=== PATIENT | male | born 1945 | race Caucasian/White ===

== ENCOUNTER → 2018-09-27 09:09 | Outpatient (CLI) | payer MEDICARE, OTHER, SELFPAY ==
[2018-09-27 10:03] LABS: Add Manual Diff / Slide Review NO; Basophils Percent Auto 0.8 % (0-2); Eosinophils Percent Auto 1.2 % (2-4); Hematocrit 43.4 % (41-53); Hemoglobin 14.7 g/dL (13.5-17.5); Lymphocytes Percent Auto 27.8 % (25-40); Mean Corpuscular HGB Conc 33.8 % (30-36); Mean Corpuscular Hemoglobin 30.1 PG (26-34); Mean Corpuscular Volume 89.2 fL (80-100); Monocytes Percent Auto 7.6 % (3-14); Neutrophils Absolute Auto 4900 /uL (3000-5900); Neutrophils Percent Auto 62.6 % (50-75); Platelet Count 236 X10^3/uL (150-400); Red Blood Cell Count 4.86 X10^6/uL (4.5-5.9); White Blood Cell Count 7.8 X10^3/uL (4.5-11.0)
[2018-09-27 10:49] LABS: Appearance Urine UA CLEAR; Bilirubin Urine UA NEGATIVE (NEGATIVE); Color Urine UA YELLOW; Glucose Urine UA NEGATIVE (Normal); Ketones Urine UA NEGATIVE (NEGATIVE); Leukocyte Esterase Urine UA NEGATIVE (NEGATIVE); Nitrite Urine UA NEGATIVE (Negative); Occult Blood Urine UA NEGATIVE (Negative); Protein Urine UA NEGATIVE (Negative); Urobilinogen Urine UA 0.2 E.U./dL (0.2); pH Urine UA 6.5 (4.5-8.0)
[2018-09-27 10:54] LABS: Alanine Aminotransferase 26 IU/L (21-72); Albumin 4.4 g/dL (3.5-5.0); Albumin Globulin Ratio 1.5 (1.0-2.8); Alkaline Phosphatase 77 U/L (38-126); Aspartate Aminotransferase 24 IU/L (17-59); Bilirubin Total 0.6 mg/dL (0.2-1.3); Blood Urea Nitrogen 16 mg/dL (9-20); Carbon Dioxide 25 mmol/L (22-32); Chloride 103 mmol/L (98-107); Cholesterol 198 mg/dL (140-199); Estimated Glomerular Filt Rate > 60.0 mL/min (>60); Globulin 2.9 g/dL (1.7-4.1); Glucose 104 mg/dL (80-110); HDL Cholesterol 62 mg/dL (40-60); HEMOLYSIS < 15 (0-50); LDL Cholesterol Calculated 114 mg/dL (<100); Potassium 4.2 mmol/L (3.4-5.1); Sodium 142 mmol/L (137-145); Total Protein 7.3 g/dL (6.3-8.2); Triglycerides 112 mg/dL (35-150)
[2018-09-27 11:18] LABS: Thyroid Stimulating Hormone 1.24 uIU/mL (0.47-4.68)
== END ==
PROVIDERS: PCP Family Medicine; Visit Provider Family Medicine
DX: C43.9 Malignant melanoma of skin, unspecified (principal); E78.5 Hyperlipidemia, unspecified; G47.00 Insomnia, unspecified; I10 Essential (primary) hypertension; M19.90 Unspecified osteoarthritis, unspecified site
CPT/HCPCS: 36415; 80053; 80061; 81003; 84153; 84443; 85025

== ENCOUNTER 2018-10-25 12:03 | Day surgery (SDC) | payer MEDICARE, OTHER, SELFPAY ==
[2018-10-25 12:55] VITALS: BMI 29.0
[2018-10-25 13:12] VITALS: BP 149/94; PULSE 108; RESP 16; TEMP 36.6; O2SAT 97
[2018-10-25] MEDS: SODIUM CHLORIDE 0.9% 1,000 ML 21 ML IV (13:13)
--- NOTE | 2018-10-25 13:56 | PM.HP.1 ---
History of Present Illness Date Patient Seen: 10/25/18 Time Patient Seen: 13:56 Chief complaint: Colonoscopy; [address]100 Narrative: 73-year-old male who presents for colorectal screening. He has not had any type of screening examination for over 30 years now. On further history today he denies any recent gastrointestinal symptoms. No nausea, vomiting, abdominal pain, loss of appetite, unexplained weight loss, change in bowel habits, diarrhea, constipation, melena, hematochezia, or bright red blood per rectum. Patient History Medical History Carpal tunnel syndrome on both sides (Acute) Cough (Acute) Melanoma (Acute) GERD (gastroesophageal reflux disease) (Chronic) Hypertension (Chronic) Varicose vein of leg (Chronic) Surgical History History of appendectomy (Resolved ~1949) History of back surgery (Resolved 1971) Family & Social History Family History: Reviewed 10/25/18 by Albino Seth MD Social History: household members spouse Tobacco & Substance use: Smoking Status Current some day smoker alcohol intake current Meds Home Medications Medication Instructions Recorded Confirmed Type hydrocodone 10 mg-acetaminophen 1 tab PO Q6H PRN 07/10/18 10/25/18 History 325 mg tablet metoprolol succinate ER 25 mg 25 mg PO DAILY 07/10/18 10/25/18 History tablet,extended release 24 hr zolpidem 10 mg tablet 10 mg PO BEDTIME PRN tab 07/10/18 10/25/18 History esomeprazole magnesium [Nexium] 20 mg PO DAILY 07/26/18 10/25/18 History oxybutynin chloride 5 mg PO DAILY 10/25/18 10/25/18 History Allergies Allergy/AdvReac Type Severity Reaction Status Date / Time No Known Drug Allergies Allergy Verified 10/25/18 12:52 Review of Systems Review of Systems All systems reviewed & are unremarkable except as noted in HPI and below Exam Vital Signs (past 8 hours): - 10/25/18 13:12 Temperature 97.9 F Pulse Rate 108 H Respiratory Rate 16 Blood Pressure 149/94 H Pulse Oximetry 97 Oxygen Delivery Method Room Air Narrative Exam Narrative: Well-nourished well-developed elderly male resting comfortably in bed in no acute distress. Alert oriented x3. Family is at the bedside. Sclera nonicteric Regular rate rhythm Abdomen soft, nondistended, nontender Extremities show no clubbing or cyanosis Objective Labs Labs: No recent laboratory or radiographic studies for review Assessment & Plan Plan: Assessment/Plan Narrative: 73-year-old may require colorectal screening since it has been more than 30 years from his last examination. Colonoscopy is currently recommended. Technical details of the procedure were discussed. Risks, benefits, alternatives were explained. Risks including but not limited to sedation, aspiration, bleeding, pain, missed lesion, incomplete examination, need for further radiographic studies, colonic perforation, need for major abdominal surgery, and all attendant risks of major surgery were explained in detail. All questions were answered to his satisfaction, and he voiced understanding. Consent was placed on the chart. We will proceed as above.
--- NOTE | 2018-10-25 13:58 | PM.PREOP ---
Pre-operative Note Interval Note Pre-op Check: Yes History & Physical Reviewed by Physician, Yes Exam Performed and Yes History & Physical exam performed today by Physician Changes: No H&P completed within 30 days and has changed as indicated here:: Patient seen and examined today. History and physical examination placed on the chart today. We will proceed with colonoscopy today as planned. ASA Class (for procedural sedation): II
[2018-10-25] MEDS: MIDAZOLAM 5 MG/5 ML VIAL IV (14:12)
[2018-10-25] MEDS: fentaNYL 250 MCG/5 ML INJ IV (14:13)
--- NOTE | 2018-10-25 14:21 | PM.OP.ENDO ---
Operative Date/Time/Diagnoses Date of procedure: 10/25/18 Time of procedure: 14:21 Pre-op diagnosis: Colorectal screening Post-op diagnosis: other (Diverticulosis but otherwise normal colon and rectum) Procedure & Clinicians Study performed: 1. Sedation per surgeon 2. Colonoscopy Same procedure as scheduled: Yes Indications: 73-year-old male who presented for colorectal screening. It has been more than 30 years from his prior examination. Colonoscopy is currently recommended Surgeon: Albino Seth Procedure Notes SCOAP/Timeout: Yes Procedure in detail: After obtaining informed consent, the patient was brought to the GI suite and placed in the left lateral decubitus position on the examination table. After placement of appropriate monitors, the patient was given incremental doses of Versed and Fentanyl until an appropriate level of sedation was achieved. A time out was held per SCOAP protocol. A digital rectal examination was performed and did not reveal any masses or obstructing lesions. The colonoscope was gently passed into the patient's anus and the entire colon navigated to the level of the cecum with minimal difficulty. Once in the cecum, the scope was withdrawn being sure to go before and beyond all mucosal folds and prominences and get an excellent examination. The findings are noted above. At the level of the rectal vault, the scope was retroflexed and the internal anal canal was examined. The scope was straightened and air aspirated from the colon. The instrument was removed from the patient's body and the procedure was concluded. The patient was allowed to awaken from sedation without difficulty and taken to the post-anesthesia care unit in good condition. Scope withdrawal time: 7:36 min Sedation minutes: 15 Findings: diverticulosis and other findings (Otherwise normal colon and rectum) Specimen(s): none sent Complications: none Recommendations: High fiber diet and Other recommendation (No further colonoscopy indicated in the absence of any new symptoms or problems) Plan for aftercare: 1. Discharge home Follow up: as needed Disposition: PACU
[2018-10-25 14:27] VITALS: BP 135/100; PULSE 96; RESP 15; TEMP 36.9; O2SAT 97
[2018-10-25 14:52] VITALS: BP 140/89; PULSE 88; RESP 12; TEMP 36.4; O2SAT 96
== END 2018-10-25 14:53 | disposition home or self-care (01) ==
PROVIDERS: PCP Family Medicine; Visit Provider Surgery
PROC: 0DJD8ZZ Inspection of Lower Intestinal Tract, Via Natural or Artificial Opening Endoscopic (ICD-10-PCS; CPT 45378; principal; 2018-10-25 13:45)
DX: Z12.11 Encounter for screening for malignant neoplasm of colon (principal); K57.30 Diverticulosis of large intestine without perforation or abscess without bleeding; I10 Essential (primary) hypertension; F17.210 Nicotine dependence, cigarettes, uncomplicated
CPT/HCPCS: G0121; 99152; J2250; J3010

== ENCOUNTER → 2018-12-06 08:07 | Outpatient (CLI) | payer MEDICARE, OTHER, SELFPAY ==
--- NOTE | 2018-12-06 10:44 | PM.TREADMILL ---
Cardiac Stress Test Report Referral & Results Date Patient Seen: 12/06/18 Requesting provider: Lakshmi Rodriguez Indication: Chest pain/fatigue Rest ECG: Unremarkable Procedure Note: Today following both written and verbal informed consent, the patient was exercised according to a standard Jose protocol. The patient exercised for a total of 7 min 7 sec achieving a maximum heart rate of 170. Patient's maximum systolic blood pressure was 220. This was an estimated 10.1 MET's. There are no ST-T segment changes Normal heart rate blood pressure response Frequent PVCs including multifocal PVCs and rare ventricular couplets including multifocal depolarizations Functional aerobic impairment rated-20% on the active scale Impression: No evidence of ischemia Ventricular dysrhythmias above, consider echocardiogram Excellent exercise capacity Please note: Actual ECG tracings can be found in the PACS system.
== END ==
PROVIDERS: PCP Family Medicine; Visit Provider Family Medicine
DX: R07.9 Chest pain, unspecified (principal); I47.0 Re-entry ventricular arrhythmia; R53.83 Other fatigue
CPT/HCPCS: 93016; 93017; 93018

== ENCOUNTER → 2019-07-09 09:18 | Outpatient (CLI) | payer MEDICARE, OTHER, SELFPAY ==
--- NOTE | 2019-07-09 10:03 | DI.CT.S_ITS ---
PROCEDURE: CT ABDOMEN PELVIS W CON INDICATIONS: abd tenderness, h/o melanoma TECHNIQUE: After the administration of oral and intravenous contrast, 5 mm thick sections acquired from the diaphragms to the symphysis. 5 mm thick coronal and sagittal reformats were performed. For radiation dose reduction, the following was used: automated exposure control, adjustment of mA and/or kV according to patient size. COMPARISON: None. FINDINGS: Image quality: Excellent. ABDOMEN: Lung bases: Lung bases are clear. Heart size is normal. Solid organs: Liver is normal in size. Mild hepatic steatosis is seen. No discrete hepatic lesion. Gallbladder is within normal limits. Biliary system is non-dilated. Pancreas enhances normally. Spleen is normal in size and enhancement. No adrenal nodules. Kidneys are normal in size and enhancement, without hydronephrosis. Peritoneum and bowel: Stomach, small bowel, and colon loops are normal in caliber and wall thickness. No free fluid or air. There is a small hiatal hernia. Sigmoid diverticulosis is seen, no significant evidence of acute diverticulitis. Nodes and vessels: No retroperitoneal or mesenteric adenopathy. Aorta and inferior vena cava are normal in caliber. Miscellaneous: There is a small umbilical hernia containing fat only. PELVIS: Genitourinary: Enlarged prostate gland is seen with mass effect of floor of urinary bladder. There is mild diffuse bladder wall thickening. No discrete bladder wall mass. Miscellaneous: No inguinal hernias or adenopathy. Surgical clips are seen in left inguinal region. Bones: No suspicious bony lesions. No vertebral body compression fractures. Prior bilateral facet fusion at L5-S1 level is seen. 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 IMPRESSION: 1. No bowel obstruction. No free fluid or free air. Sigmoid diverticulosis, no CT evidence of acute diverticulitis. 2. Enlarged prostate gland with mild mass effect of floor of urinary bladder. Mild diffuse bladder wall thickening, no discrete bladder wall mass. 3. Post surgical changes in lower lumbar spine. No gross acute osseous abnormality. Dictated by: Kd Green M.D. on 07/09/2019 at 13:49 Approved by: Kd Green M.D. on 07/09/2019 at 13:54
== END ==
PROVIDERS: Family Provider Family Medicine; PCP Family Medicine; Visit Provider Internal Medicine Hematology & Oncology
DX: D03.4 Melanoma in situ of scalp and neck (principal); R10.32 Left lower quadrant pain
CPT/HCPCS: 74177; Q9967

== ENCOUNTER → 2019-07-18 09:20 | Oncology outpatient (ONC) | payer MEDICARE, OTHER, SELFPAY ==
--- NOTE | 2018-07-26 10:11 | ONC.CONS ---
History of Present Illness - Consult Narrative Reason for consult: Scalp melanoma Narrative: Mr. Derek Bruner is a 73 year old male with medical problems most notable for hypertension. He has a abnormal skin nevi on top of the scalp for a long long time. On March 06, 2018, Dr. Jacob Elizabeth performed biopsy of the lesion. Patient and patient's daughter said that the skin lesion has been there for years and it was dark and 'big', but with no pain and no itching at all. Dr. Elizabeth, however, noticed 'something not right' and therefore recommended the biopsy. 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 Tumor infiltrating lymphocytes were present and no neurotropism identified. The margins were positive. The deep margin was negative. It was called pT2a. BRAF mutation was not performed. On March 21, 2018. he underwent PET scan that was negative for evidence of metastatic disease. Patient was then referred to [facility]ck [facility] Department. Patient underwent re-resection and sentinel lymph node excision on April 16, 2018. The final pathology showed that the residual scalp melanoma 0.6 mm in thickness. Tumor regression was present involving 75% or more of the lesion. 2 sentinel lymph nodes were negative for neoplasm. All margins were widely free of by involvement. The final staging was pT2a pN0. Patient presents here today for discussion of postoperative adjuvant therapy. Clinically patient reports no headache, no double vision, and no blurred vision. Patient does report numbness of the grafted scalp. Patient reports no shortness of breath, and no chest pain. He denies abdominal pain, diarrhea or constipation. Patient reports poor appetite adn low energy level CC: Canelo Peralta MD Home Medications and Allergies Home Medications Medication Instructions Recorded Confirmed Type hydrocodone 10 mg-acetaminophen 1 tab PO Q6H PRN 07/10/18 07/10/18 History 325 mg tablet metoprolol succinate ER 25 mg 25 mg PO DAILY 07/10/18 07/10/18 History tablet,extended release 24 hr simvastatin 20 mg tablet 20 mg PO QPM 07/10/18 07/10/18 History zolpidem 10 mg tablet PO tab 07/10/18 07/10/18 History esomeprazole magnesium [Nexium] 20 mg PO DAILY 07/26/18 07/26/18 History Allergies Allergy/AdvReac Type Severity Reaction Status Date / Time No Known Drug Allergies Allergy Verified 07/10/18 09:40 Medical History - Medical, Surgical, Family History Medical History: Medical History (Last Updated 07/26/18 @ 10:46 by Canelo Peralta MD) Carpal tunnel syndrome on both sides Cough Hypertension Varicose vein of leg Surgical History: Surgical History (Last Updated 07/26/18 @ 10:46 by Canelo Peralta MD) History of appendectomy History of back surgery Family History: Family History (Last Reviewed 07/26/18 @ 10:58 by Canelo Peralta MD) Mother Pancreatic cancer Sister Breast cancer - Social History Smoking Status: Current some day smoker Review of Systems All systems PM: reviewed and no additional remarkable complaints except as stated Exam - Constitutional positive no acute distress, positive cooperative - Routine HEENT Exam Head: Present: normocephalic, atraumatic Eye: Present: EOMI, PERRL, normal accommodation. Absent: conjunctival icterus ENT: Present: mucous membranes moist - Routine Neck Exam Present: supple, full ROM, JVD. Absent: lymphadenopathy, thyromegaly - Routine Respiratory Exam Present: Clear to auscultation bilaterally. Absent: wheezes - Routine Cardiovascular Exam Present: RRR, S1, S2. Absent: murmur, gallop, rubs - Routine Abdominal Exam Present: soft, normoactive bowel sounds. Absent: tenderness, distended, organomegaly - Routine Extremities Exam Present: cyanosis, clubbing, edema - Routine Skin Exam Present: intact, cyanosis, erythema - Routine Neurological Exam Present: alert, oriented X3, CN II-XII intact, normal speech - Routine Psychiatric Exam Present: normal affect, normal thought process, good insight, good judgment Results - Labs I reviewed all the medical records available to me including the lab results the x-rays and the pathology report. Assessment and Plan (1) Melanoma in situ of scalp Current visit: Yes Status: Chronic I reviewed the pathology report from [facility] and from the [facility]. It is a node negative pT2a pN0 M0 melanoma of the scalp. That is stage IB. And the primary malignancy has completely resected with white negative margins. Two sentinel lymph nodes dissection were completely negative for evidence of malignancy. I talked with the patient that based on NCCN guidelines, I recommend active surveillance. I will bring this patient back in about 6 months for follow-up visit. I also encouraged the patient to continue follow-up with his primary drapery worker and primary care physician for continued follow-up visit.
--- NOTE | 2018-07-26 10:54 | ONC.NAV ---
Description: New Pt Intro Activity: Met with pt and his dtr, Renae, very briefly before his initial provider consult visit today. Pt has been recently diagnosed with melanoma, and has already had a surgical procedure to remove the lesion on the top of his head. He presents in good spirits, denies the need for any additional support or resources at this time. His daughter is a nurse here at , and provides excellent support. Plan: Will monitor pt's treatment plan, and offer ongoing assistance and support as needed. Ongoing psychosocial assessment.
[2018-07-26 11:09] VITALS: BP 151/91; PULSE 69; RESP 16; TEMP 36.4; O2SAT 96
--- NOTE | 2018-08-02 10:42 | PC.NURSE ---
Spoke with Lilia RN with Dr Rodriguez's office. Pt was seen for Melanoma to the scalp which she then referred to a silver miner blasting as well as an oncologist which happens to be Dr Peralta. There was some confusion regarding lymph node involvement on both the pts part as well as Dr Rodriguez's dictation. Path results dated April of 2018 showed both lymph nodes 1 and 2 removed from the left neck to be negative for melanoma. I have asked Lilia to speak with Dr Rodriguez and do an addendum to her dictation dated 07/10 changing the positive nodes to negative nodes based on the path reports.
[2019-01-03 11:01] VITALS: BP 158/89; PULSE 71; RESP 18; TEMP 36.5; O2SAT 97
--- NOTE | 2019-01-03 11:15 | ONC.PN ---
PN -Subjective Interval history: He presents here today for scheduled six-month follow-up visit. Currently the patient is also being followed every three months for skin exams by Clara Kruger PA-C, [facility]. The most recent was 2 months ago. No abnormal findings. Clinically patient said that he has been doing very well. No new skin rashes no new headache double vision or blurred vision. No chest pain no shortness of breath. No abdominal pain no diarrhea and no constipation. Oncology History Mr. Derek Bruner is a 73 year old male with medical problems most notable for hypertension. He has an abnormal skin nevi on top of the scalp for a long long time. On March 06, 2018, Dr. Jacob Elizabeth performed biopsy of the lesion. Patient and patient's daughter said that the skin lesion has been there for years and it was dark and 'big', but with no pain and no itching at all. Dr. Elizabeth, however, noticed 'something not right' and therefore recommended the biopsy. 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 Tumor infiltrating lymphocytes were present and no neurotropism identified. The margins were positive. The deep margin was negative. It was called pT2a. BRAF mutation was not performed. On March 21, 2018. he underwent PET scan that was negative for evidence of metastatic disease. Patient was then referred to [facility] Department. Patient underwent re-resection and sentinel lymph node excision on April 16, 2018. The final pathology showed that the residual scalp melanoma 0.6 mm in thickness. Tumor regression was present involving 75% or more of the lesion. 2 sentinel lymph nodes were negative for neoplasm. All margins were widely free of by involvement. The final staging was pT2a pN0. Patient presents here today for discussion of postoperative adjuvant therapy. Clinically patient reports no headache, no double vision, and no blurred vision. Patient does report numbness of the grafted scalp. Patient reports no shortness of breath, and no chest pain. He denies abdominal pain, diarrhea or constipation. Patient reports poor appetite adn low energy level - Patient Self-Reported Symptoms SR ears, nose, mouth, throat issues: Congestion, Cough SR respiratory issues: Mucous SR Skin issues: Skin rash or itching SR Gastrointestinal issues: Heartburn SR Genitourinary issues: Frequent urination SR Musculoskeletal issues: Back or neck pain SR Neuro issues: Headache - Additional ROS All systems PM: reviewed and no additional remarkable complaints except as stated Home Medications and Allergies Home Medications Medication Instructions Recorded Confirmed Type hydrocodone 10 mg-acetaminophen 1 tab PO Q6H PRN 07/10/18 10/31/18 History 325 mg tablet metoprolol succinate ER 25 mg 25 mg PO DAILY 07/10/18 10/31/18 History tablet,extended release 24 hr zolpidem 10 mg tablet 10 mg PO BEDTIME PRN tab 07/10/18 10/31/18 History esomeprazole magnesium [Nexium] 20 mg PO DAILY 07/26/18 10/31/18 History oxybutynin chloride 5 mg PO DAILY 10/25/18 01/03/19 History adjuvant AS01B (PF), component 0.5 ml IM ONCE #0.5 ml 10/31/18 10/31/18 Rx vial 1 of 2 intramuscular suspension Allergies Allergy/AdvReac Type Severity Reaction Status Date / Time No Known Drug Allergies Allergy Verified 10/31/18 10:11 Exam Vital signs: Last Vital Signs Temp 97.7 F 01/03/19 11:01 Pulse 71 01/03/19 11:01 Resp 18 01/03/19 11:01 BP 158/89 H 01/03/19 11:01 Pulse Ox 97 01/03/19 11:01 ECOG 1 Narrative: Constitutional: WDWN, NAD, well groomed, pleasant and cooperative. HEENT: NCAT, EOMI, PERRLA, anicteric sclera. Neck: Supple, No palpable thyromegaly or lymphadenopathy. Respiratory: Clear to auscultation, and no wheezes or rales or rubs. Cardiovascular: RRR, S1 and S2 normal, no M/G/R. No JVD. Abdomen: Soft, NTND, BS normal, no palpable organomegaly, no hernia, no palpable masses. Extremities: No LE pitting edema. Lymphatic: no palpable lymph nodes in the neck, axillae, or groins. Musculoskeletal: normal gait and station Skin: no rashes, no ulcers, no petechiae Neurological: AOx3, CN II-XII grossly intact. No focal motor or sensory deficit. Psychiatric: Good judgment and insight; normal affect; normal thought process; cooperative, no depression, no anxiety. Results - Labs Reviewed. Assessment and Plan (1) Melanoma in situ of scalp Assessment: I reviewed the pathology report from [facility] and from the [facility]. It is a node negative pT2a pN0 M0 melanoma of the scalp. That is stage IB. And the primary malignancy has completely resected with white negative margins. Two sentinel lymph nodes dissection were completely negative for evidence of malignancy. I talked with the patient that based on NCCN guidelines, I recommended active surveillance. He presents here today for follow-up visit and I did not see any abnormal skin changes. Patient is also being followed every three months for skin exams by Clara Kruger PA-C, [facility]. The most recent was 2 months ago. No abnormal findings. Plan: 1. RTC in 6 months, CBC, CMP 2. Cont follow up with Clara Kruger PA-C, [facility] for skin exam every 3 months
[2019-06-26 08:29] LABS: Add Manual Diff / Slide Review NO; Basophils Absolute Auto 100 /uL (0-100); Basophils Percent Auto 0.8 % (0-2); Eosinophils Absolute Auto 200 /uL (0-450); Eosinophils Percent Auto 2.6 % (2-4); Hematocrit 42.8 % (41-53); Hemoglobin 14.3 g/dL (13.5-17.5); Lymphocytes Absolute Auto 2400 /uL (1100-4500); Lymphocytes Percent Auto 37.1 % (25-40); Mean Corpuscular HGB Conc 33.4 % (30-36); Mean Corpuscular Hemoglobin 30.4 PG (26-34); Mean Corpuscular Volume 90.9 fL (80-100); Monocytes Absolute Auto 600 /uL (0-900); Monocytes Percent Auto 9.1 % (3-14); Neutrophils Absolute Auto 3200 /uL (1500-7000); Neutrophils Percent Auto 50.4 % (50-75); Platelet Count 206 X10^3/uL (150-400); Red Blood Cell Count 4.71 X10^6/uL (4.5-5.9); Red Cell Distribution Width 13.7 % (11.6-14.8); White Blood Cell Count 6.4 X10^3/uL (4.5-11.0)
[2019-06-26 08:43] LABS: Alanine Aminotransferase 23 IU/L (21-72); Albumin 4.2 g/dL (3.5-5.0); Albumin Globulin Ratio 1.4 (1.0-2.8); Alkaline Phosphatase 75 U/L (38-126); Aspartate Aminotransferase 26 IU/L (17-59); Bilirubin Total 0.7 mg/dL (0.2-1.3); Blood Urea Nitrogen 16 mg/dL (9-20); Calcium 9.3 mg/dL (8.4-10.2); Carbon Dioxide 27 mmol/L (22-32); Chloride 103 mmol/L (98-107); Estimated Glomerular Filt Rate > 60.0 mL/min (>60); Globulin 2.9 g/dL (1.7-4.1); Glucose 99 mg/dL (80-110); HEMOLYSIS < 15 (0-50); Potassium 4.4 mmol/L (3.4-5.1); Sodium 138 mmol/L (137-145); Total Protein 7.1 g/dL (6.3-8.2)
[2019-07-04 09:01] VITALS: BP 146/86; PULSE 58; RESP 16; TEMP 36.6; O2SAT 95
--- NOTE | 2019-07-04 09:11 | ONC.PN ---
PN -Subjective Interval history: 74 year old male with melanoma here for scheduled follow up visit. Oncology History He has an abnormal skin nevi on top of the scalp for a long long time. On March 06, 2018, Dr. Jacob Elizabeth performed biopsy of the lesion. 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 Tumor infiltrating lymphocytes were present and no neurotropism identified. The margins were positive. The deep margin was negative. It was called pT2a. BRAF mutation was not performed. On March 21, 2018. he underwent PET scan that was negative for evidence of metastatic disease. Patient was then referred to [facility] Department. Patient underwent re-resection and sentinel lymph node excision on April 16, 2018. The final pathology showed that the residual scalp melanoma 0.6 mm in thickness. Tumor regression was present involving 75% or more of the lesion. 2 sentinel lymph nodes were negative for neoplasm. All margins were widely free of by involvement. The final staging was pT2a pN0. Interim Events He presents here today for scheduled six-month follow-up visit. Currently the patient is also being followed every three months for skin exams by Clara Kruger PA-C, [facility]. Clinically patient said that he has been doing very well. No new skin rashes no new headache double vision or blurred vision. No chest pain no shortness of breath. No abdominal pain no diarrhea and no constipation. l - Patient Self-Reported Symptoms SR ears, nose, mouth, throat issues: Congestion, Cough SR respiratory issues: Mucous SR Skin issues: Skin rash or itching SR Gastrointestinal issues: Heartburn SR Genitourinary issues: Frequent urination SR Musculoskeletal issues: Back or neck pain SR Neuro issues: Headache - Additional ROS All systems PM: reviewed and no additional remarkable complaints except as stated Home Medications and Allergies Home Medications Medication Instructions Recorded Confirmed Type hydrocodone 10 mg-acetaminophen 1 tab PO Q6H PRN 07/10/18 07/04/19 History 325 mg tablet metoprolol succinate ER 25 mg 25 mg PO DAILY 07/10/18 07/04/19 History tablet,extended release 24 hr zolpidem 10 mg tablet 10 mg PO BEDTIME PRN tab 07/10/18 07/04/19 History esomeprazole magnesium [Nexium] 20 mg PO DAILY 07/26/18 07/04/19 History oxybutynin chloride 5 mg PO DAILY 10/25/18 07/04/19 History adjuvant AS01B (PF), component 0.5 ml IM ONCE #0.5 ml 10/31/18 07/04/19 Rx vial 1 of 2 intramuscular suspension Allergies Allergy/AdvReac Type Severity Reaction Status Date / Time No Known Drug Allergies Allergy Verified 10/31/18 10:11 Exam Vital signs: Vital Signs Temp Pulse Resp BP Pulse Ox 07/04/19 09:01 97.8 F 58 L 16 146/86 H 95 Intake and Output 07/03/19 07/04/19 07/04/19 23:59 07:59 15:59 Other: Weight 86.5 kg Patient Weight 07/04/19 23:59 Weight 86.5 kg Narrative: Gen: WDWN, NAD, pleasant and cooperative. HEENT: NCAT, EOMI, PERRLA, anicteric sclera. scalp surgical wound noted, well healed, no nodules or lumps. Neck: Supple, No palpable thyromegaly or lymphadenopathy. Respiratory: CTAB, no wheezes audible. No JVD Cardiovascular: RRR, S1 and S2 normal, no M/G/R. Abdomen: Soft, tenderness noted at the LLQ, and liver palpable 3 cm below RCM with 'minute pain. Extremities: No LE pitting edema. Lymphatic: no palpable lymph nodes in the neck, axillae, or groins. Neurological: AOx3, CN II-XII grossly intact. No focal motor or sensory deficit. Psychiatric: Good judgment and insight; normal affect; normal thought process; cooperative, no depression, no anxiety. Results - Labs Laboratory Last Values WBC 6.4 X10^3/uL (4.5-11.0) 06/26/19 07:35 RBC 4.71 X10^6/uL (4.5-5.9) 06/26/19 07:35 Hgb 14.3 g/dL (13.5-17.5) 06/26/19 07:35 Hct 42.8 % (41-53) 06/26/19 07:35 MCV 90.9 fL (80-100) 06/26/19 07:35 MCH 30.4 PG (26-34) 06/26/19 07:35 MCHC 33.4 % (30-36) 06/26/19 07:35 RDW 13.7 % (11.6-14.8) 06/26/19 07:35 Plt Count 206 X10^3/uL (150-400) 06/26/19 07:35 Neut % (Auto) 50.4 % (50-75) 06/26/19 07:35 Lymph % (Auto) 37.1 % (25-40) 06/26/19 07:35 [place] % (Auto) 9.1 % (3-14) 06/26/19 07:35 Eos % (Auto) 2.6 % (2-4) 06/26/19 07:35 Baso % (Auto) 0.8 % (0-2) 06/26/19 07:35 Neut # (Auto) 3200 /uL (5426-4785) 06/26/19 07:35 Lymph # (Auto) 2400 /uL (3102-5902) 06/26/19 07:35 [place] # (Auto) 600 /uL (0-900) 06/26/19 07:35 Eos # (Auto) 200 /uL (0-450) 06/26/19 07:35 Baso # (Auto) 100 /uL (0-100) 06/26/19 07:35 Sodium 138 mmol/L (137-145) 06/26/19 07:35 Potassium 4.4 mmol/L (3.4-5.1) 06/26/19 07:35 Chloride 103 mmol/L (98-107) 06/26/19 07:35 Carbon Dioxide 27 mmol/L (22-32) 06/26/19 07:35 BUN 16 mg/dL (9-20) 06/26/19 07:35 Creatinine 0.80 mg/dL (0.66-1.25) 06/26/19 07:35 Estimated GFR > 60.0 mL/min (>60) 06/26/19 07:35 BUN/Creatinine Ratio 20.0 (6-22) 06/26/19 07:35 Glucose 99 mg/dL (80-110) 06/26/19 07:35 Calcium 9.3 mg/dL (8.4-10.2) 06/26/19 07:35 Total Bilirubin 0.7 mg/dL (0.2-1.3) 06/26/19 07:35 AST 26 IU/L (17-59) 06/26/19 07:35 ALT 23 IU/L (21-72) 06/26/19 07:35 Alkaline Phosphatase 75 U/L (38-126) 06/26/19 07:35 Total Protein 7.1 g/dL (6.3-8.2) 06/26/19 07:35 Albumin 4.2 g/dL (3.5-5.0) 06/26/19 07:35 Globulin 2.9 g/dL (1.7-4.1) 06/26/19 07:35 Albumin/Globulin Ratio 1.4 (1.0-2.8) 06/26/19 07:35 Assessment and Plan (1) Melanoma in situ of scalp Overview: 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 On March 21, 2018, PET scan that was negative for evidence of metastatic disease. Resection and sentinel lymph node excision on April 16, 2018 at . The final pathology showed that the residual scalp melanoma 0.6 mm in thickness. Tumor regression was present involving 75% or more of the lesion. 2 sentinel lymph nodes were negative for neoplasm. All margins were widely free of by involvement. The final staging was pT2a pN0 M0 (Stage IB). Assessment: Patient is also being followed every three months for skin exams by Clara Kruger PA-C, [facility]. No abnormal findings. Clinically no symptoms. However on my physical examination, patient has demonstrated left lower quadrant abdominal pain and palpable liver with ?minute? pain upon palpation. I will proceed with CT scan of the abdomen and pelvis for further evaluation. Plan: CT abd/pelvis w/contrast RTC after scan
--- NOTE | 2019-07-04 09:22 | P.PNONC_ITS ---
PN -Subjective Interval history: 74 year old male with melanoma here for scheduled follow up visit. Oncology History He has an abnormal skin nevi on top of the scalp for a long long time. On March 06, 2018, Dr. Jacob Elizabeth performed biopsy of the lesion. 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 Tumor infiltrating lymphocytes were present and no neurotropism identified. The margins were positive. The deep margin was negative. It was called pT2a. BRAF mutation was not performed. On March 21, 2018. he underwent PET scan that was negative for evid ence of metastatic disease. Patient was then referred to [facility] Department. Patient underwent re-resection and sentinel lymph node excision on April 16, 2018. The final pathology showed that the residual scalp melanoma 0.6 mm in thickness. Tumor regression was present involving 75% or more of the lesion. 2 sentinel lymph nodes were negative for neoplasm. All margins were widely free of by involvement. The final staging was pT2a pN0. Interim Events He presents here today for scheduled six-month follow-up visit. Currently the patient is also being followed every three months for skin exams by Clara Kruger PA-C, [facility]. Clinically patient said that he has been doing very well. No new skin rashes no new headache double vision or blurred vision. No chest pain no shortness of breath. No abdominal pain no diarrhea and no constipation. l - Patient Self-Reported Symptoms SR ears, nose, mouth, throat issues: Congestion, Cough SR respiratory issues: Mucous SR Skin issues: Skin rash or itching SR Gastrointestinal issues: Heartburn SR Genitourinary issues: Frequent urination SR Musculoskeletal issues: Back or neck pain SR Neuro issues: Headache - Additional ROS All systems PM: reviewed and no additional remarkable complaints except as stated Home Medications and Allergies Home Medications Medication Instructions Recorded Confirmed Type hydrocodone 10 mg-acetaminophen 1 tab PO Q6H PRN 07/10/18 07/04/19 History 325 mg tablet metoprolol succinate ER 25 mg 25 mg PO DAILY 07/10/18 07/04/19 History tablet,extended release 24 hr zolpidem 10 mg tablet 10 mg PO BEDTIME PRN tab 07/10/18 07/04/19 History esomeprazole magnesium [Nexium] 20 mg PO DAILY 07/26/18 07/04/19 History oxybutynin chloride 5 mg PO DAILY 10/25/18 07/04/19 History adjuvant AS01B (PF), component 0.5 ml IM ONCE #0.5 ml 10/31/18 07/04/19 Rx vial 1 of 2 intramuscular suspension Allergies Allergy/AdvReac Type Severity Reaction Status Date / Time No Known Drug Allergies Allergy Verified 10/31/18 10:11 Exam Vital signs: Vital Signs Temp Pulse Resp BP Pulse Ox 07/04/19 09:01 97.8 F 58 L 16 146/86 H 95 Intake and Output 07/03/19 07/04/19 07/04/19 23:59 07:59 15:59 Other: Weight 86.5 kg Patient Weight 07/04/19 23:59 Weight 86.5 kg Narrative: Gen: WDWN, NAD, pleasant and cooperative. HEENT: NCAT, EOMI, PERRLA, anicteric sclera. scalp surgical wound noted, well healed, no nodules or lumps. Neck: Supple, No palpable thyromegaly or lymphadenopathy. Respiratory: CTAB, no wheezes audible. No JVD Cardiovascular: RRR, S1 and S2 normal, no M/G/R. Abdomen: Soft, tenderness noted at the LLQ, and liver palpable 3 cm below RCM with 'minute pain. Extremities: No LE pitting edema. Lymphatic: no palpable lymph nodes in the neck, axillae, or groins. Neurological: AOx3, CN II-XII grossly intact. No focal motor or sensory deficit. Psychiatric: Good judgment and insight; normal affect; normal thought process; cooperative, no depression, no anxiety. Results - Labs Laboratory Last Values WBC 6.4 X10^3/uL (4.5-11.0) 06/26/19 07:35 RBC 4.71 X10^6/uL (4.5-5.9) 06/26/19 07:35 Hgb 14.3 g/dL (13.5-17.5) 06/26/19 07:35 Hct 42.8 % (41-53) 06/26/19 07:35 MCV 90.9 fL (80-100) 06/26/19 07:35 MCH 30.4 PG (26-34) 06/26/19 07:35 MCHC 33.4 % (30-36) 06/26/19 07:35 RDW 13.7 % (11.6-14.8) 06/26/19 07:35 Plt Count 206 X10^3/uL (150-400) 06/26/19 07:35 Neut % (Auto) 50.4 % (50-75) 06/26/19 07:35 Lymph % (Auto) 37.1 % (25-40) 06/26/19 07:35 [place] % (Auto) 9.1 % (3-14) 06/26/19 07:35 Eos % (Auto) 2.6 % (2-4) 06/26/19 07:35 Baso % (Auto) 0.8 % (0-2) 06/26/19 07:35 Neut # (Auto) 3200 /uL (7149-1236) 06/26/19 07:35 Lymph # (Auto) 2400 /uL (7448-2162) 06/26/19 07:35 [place] # (Auto) 600 /uL (0-900) 06/26/19 07:35 Eos # (Auto) 200 /uL (0-450) 06/26/19 07:35 Baso # (Auto) 100 /uL (0-100) 06/26/19 07:35 Sodium 138 mmol/L (137-145) 06/26/19 07:35 Potassium 4.4 mmol/L (3.4-5.1) 06/26/19 07:35 Chloride 103 mmol/L (98-107) 06/26/19 07:35 Carbon Dioxide 27 mmol/L (22-32) 06/26/19 07:35 BUN 16 mg/dL (9-20) 06/26/19 07:35 Creatinine 0.80 mg/dL (0.66-1.25) 06/26/19 07:35 Estimated GFR > 60.0 mL/min (>60) 06/26/19 07:35 BUN/Creatinine Ratio 20.0 (6-22) 06/26/19 07:35 Glucose 99 mg/dL (80-110) 06/26/19 07:35 Calcium 9.3 mg/dL (8.4-10.2) 06/26/19 07:35 Total Bilirubin 0.7 mg/dL (0.2-1.3) 06/26/19 07:35 AST 26 IU/L (17-59) 06/26/19 07:35 ALT 23 IU/L (21-72) 06/26/19 07:35 Alkaline Phosphatase 75 U/L (38-126) 06/26/19 07:35 Total Protein 7.1 g/dL (6.3-8.2) 06/26/19 07:35 Albumin 4.2 g/dL (3.5-5.0) 06/26/19 07:35 Globulin 2.9 g/dL (1.7-4.1) 06/26/19 07:35 Albumin/Globulin Ratio 1.4 (1.0-2.8) 06/26/19 07:35 Assessment and Plan (1) Melanoma in situ of scalp Overview: 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 On March 21, 2018, PET scan that was negative for evidence of metastatic disease. Resection and sentinel lymph node excision on April 16, 2018 at . The final pathology showed that the residual scalp melanoma 0.6 mm in thickness. Tumor regression was present involving 75% or more of the lesion. 2 sentinel lymph nodes were negative for neoplasm. All margins were widely free of by involvement. The final staging was pT2a pN0 M0 (Stage IB). Assessment: Patient is also being followed every three months for skin exams by Clara Kruger PA-C, [facility]. No abnormal findings. Clinically no symptoms. However on my physical examination, patient has demonstrated left lower quadrant abdominal pain and palpable liver with ?minute? pain upon palpation. I will proceed with CT scan of the abdomen and pelvis for further evaluation. Plan: CT abd/pelvis w/contrast RTC after scan
[2019-07-18 09:22] VITALS: BP 143/88; PULSE 72; RESP 18; TEMP 36.4; O2SAT 95
--- NOTE | 2019-07-18 09:37 | P.PNONC_ITS ---
PN -Subjective Interval history: 74 year old male with melanoma here for scheduled follow up visit. Oncology History He has an abnormal skin nevi on top of the scalp for a long long time. On March 06, 2018, Dr. Jacob Elizabeth performed biopsy of the lesion. 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 Tumor infiltrating lymphocytes were present and no neurotropism identified. The margins were positive. The deep margin was negative. It was called pT2a. BRAF mutation was not performed. On March 21, 2018. he underwent PET scan that was negative for evid ence of metastatic disease. Patient was then referred to [facility] Neck On[facility] Department. Patient underwent re-resection and sentinel lymph node excision on April 16, 2018. The final pathology showed that the residual scalp melanoma 0.6 mm in thickness. Tumor regression was present involving 75% or more of the lesion. 2 sentinel lymph nodes were negative for neoplasm. All margins were widely free of by involvement. The final staging was pT2a pN0. Interim Events He is here to review the CT result that was done on 07/09/2019. No abnormal findings except enlarged prostate. Clinically patient does not have any new signs or symptoms. - Patient Self-Reported Symptoms SR ears, nose, mouth, throat issues: Cough SR respiratory issues: Mucous SR Skin issues: Skin rash or itching SR Gastrointestinal issues: Heartburn SR Genitourinary issues: Frequent urination SR Musculoskeletal issues: Back or neck pain SR Neuro issues: Headache - Additional ROS All systems PM: reviewed and no additional remarkable complaints except as stated Home Medications and Allergies Home Medications Medication Instructions Recorded Confirmed Type hydrocodone 10 mg-acetaminophen 1 tab PO Q6H PRN 07/10/18 07/18/19 History 325 mg tablet metoprolol succinate 25 mg 25 mg PO DAILY 07/10/18 07/04/19 History tablet,extended release 24 hr zolpidem 10 mg tablet 10 mg PO BEDTIME PRN tab 07/10/18 07/18/19 History esomeprazole magnesium [Nexium] 20 mg PO DAILY 07/26/18 07/18/19 History oxybutynin chloride 5 mg PO DAILY 10/25/18 07/18/19 History adjuvant AS01B (PF)vial 1 of 2 0.5 ml IM ONCE #0.5 ml 10/31/18 07/18/19 Rx Allergies Allergy/AdvReac Type Severity Reaction Status Date / Time No Known Drug Allergies Allergy Verified 10/31/18 10:11 Exam Vital signs: Vital Signs Temp Pulse Resp BP Pulse Ox 07/18/19 09:22 97.6 F 72 18 143/88 H 95 Intake and Output 07/17/19 07/18/19 07/18/19 23:59 07:59 15:59 Other: Weight 86.1 kg Patient Weight 07/18/19 23:59 Weight 86.1 kg Narrative: Patient appears comfortable not in any acute respiratory distress. He is pleasant cooperative I did not perform a full physical examination today. Results - Labs Laboratory Last Values WBC 6.4 X10^3/uL (4.5-11.0) 06/26/19 07:35 RBC 4.71 X10^6/uL (4.5-5.9) 06/26/19 07:35 Hgb 14.3 g/dL (13.5-17.5) 06/26/19 07:35 Hct 42.8 % (41-53) 06/26/19 07:35 MCV 90.9 fL (80-100) 06/26/19 07:35 MCH 30.4 PG (26-34) 06/26/19 07:35 MCHC 33.4 % (30-36) 06/26/19 07:35 RDW 13.7 % (11.6-14.8) 06/26/19 07:35 Plt Count 206 X10^3/uL (150-400) 06/26/19 07:35 Neut % (Auto) 50.4 % (50-75) 06/26/19 07:35 Lymph % (Auto) 37.1 % (25-40) 06/26/19 07:35 [place] % (Auto) 9.1 % (3-14) 06/26/19 07:35 Eos % (Auto) 2.6 % (2-4) 06/26/19 07:35 Baso % (Auto) 0.8 % (0-2) 06/26/19 07:35 Neut # (Auto) 3200 /uL (0573-8156) 06/26/19 07:35 Lymph # (Auto) 2400 /uL (6978-3055) 06/26/19 07:35 [place] # (Auto) 600 /uL (0-900) 06/26/19 07:35 Eos # (Auto) 200 /uL (0-450) 06/26/19 07:35 Baso # (Auto) 100 /uL (0-100) 06/26/19 07:35 Sodium 138 mmol/L (137-145) 06/26/19 07:35 Potassium 4.4 mmol/L (3.4-5.1) 06/26/19 07:35 Chloride 103 mmol/L (98-107) 06/26/19 07:35 Carbon Dioxide 27 mmol/L (22-32) 06/26/19 07:35 BUN 16 mg/dL (9-20) 06/26/19 07:35 Creatinine 0.80 mg/dL (0.66-1.25) 06/26/19 07:35 Estimated GFR > 60.0 mL/min (>60) 06/26/19 07:35 BUN/Creatinine Ratio 20.0 (6-22) 06/26/19 07:35 Glucose 99 mg/dL (80-110) 06/26/19 07:35 Calcium 9.3 mg/dL (8.4-10.2) 06/26/19 07:35 Total Bilirubin 0.7 mg/dL (0.2-1.3) 06/26/19 07:35 AST 26 IU/L (17-59) 06/26/19 07:35 ALT 23 IU/L (21-72) 06/26/19 07:35 Alkaline Phosphatase 75 U/L (38-126) 06/26/19 07:35 Total Protein 7.1 g/dL (6.3-8.2) 06/26/19 07:35 Albumin 4.2 g/dL (3.5-5.0) 06/26/19 07:35 Globulin 2.9 g/dL (1.7-4.1) 06/26/19 07:35 Albumin/Globulin Ratio 1.4 (1.0-2.8) 06/26/19 07:35 - Imaging CT scan - abdomen: report reviewed, image reviewed Assessment and Plan (1) Melanoma in situ of scalp Overview: 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 On March 21, 2018, PET scan was negative for evidence of metastatic disease. Resection and sentinel lymph node excision on April 16, 2018 at . The final pathology showed that the residual scalp melanoma 0.6 mm in thickness. Tumor regression was present involving 75% or more of the lesion. Two sentinel lymph nodes were negative for neoplasm. All margins were widely free of by involvement. The final staging was pT2a pN0 M0 (Stage IB). Assessment: Patient clinically does not any new signs or symptoms. He presents here today to review the CT scan results. The CT was performed on 07/09/2019. No abnormal findings except enlarged prostate. Plan: Continue follow with Clara Kruger PA-C, [facility] every 6 months RTC in 6 months, CBC, CMP (2) Enlarged prostate CT scan showed enlarged prostate on 07/09/2019. Clinically patient does not have any urinary sign or symptoms. I recommended continue follow-up. Plan: PSA/T when he comes back in 6 months for follow up visit of his melanoma
== END ==
PROVIDERS: Family Provider Family Medicine; PCP Family Medicine; Visit Provider Internal Medicine Hematology & Oncology
DX: Z08 Encounter for follow-up examination after completed treatment for malignant neoplasm (principal); Z85.820 Personal history of malignant melanoma of skin; N40.0 Benign prostatic hyperplasia without lower urinary tract symptoms
CPT/HCPCS: 36415; 80053; 85025; 99204; 99214